=== PATIENT | female | born 1940 ===

== ENCOUNTER → 2018-03-12 13:47 | Outpatient (REF) | payer MEDICARE, SELFPAY | LOC: LAB 13:47 | PROVIDERS: Visit Provider Dermatology | DX: L97.829 Non-pressure chronic ulcer of other part of left lower leg with unspecified severity (principal) | CPT/HCPCS: 87070; 87077; 87186; 87205 ==

== ENCOUNTER → 2018-04-15 14:01 | Outpatient (REF) | payer MEDICARE, SELFPAY | LOC: LAB 14:01 | PROVIDERS: Visit Provider Dermatology | DX: L97.822 Non-pressure chronic ulcer of other part of left lower leg with fat layer exposed (principal) | CPT/HCPCS: 87070; 87077; 87186; 87205 ==